=== PATIENT | female | born 1995 | race African-American/Black ===

== ENCOUNTER 2019-07-22 08:57 | Emergency (ER) | payer BC, MEDICAID, SELFPAY ==
[2019-07-22 09:17] VITALS: BP 143/90; PULSE 74; RESP 16; TEMP 36.9; O2SAT 99
--- NOTE | 2019-07-22 09:36 | ED.GENADULT ---
HPI - General Adult General Chief complaint: Eye Problems Stated complaint: Left Eye pain Time Seen by Provider: 07/22/19 09:36 Source: patient and RN notes reviewed Mode of arrival: ambulatory Limitations: no limitations History of Present Illness HPI narrative: 24-year-old -[place] female presents with complains of redness and sensation of foreign body in left eye for 1 day. No treatment. She says her child scratched her on an accident in the left eye earlier this morning between 01:00 and 02:00 when she picked her up. Moderate redness and clear drainage. Symptoms worsening throughout the day. Exacerbating factors open eye and light. Relieving factors is closing eyes. Denies blurred vision, double vision, or pain of eye with movement. Denies fever or chills. Remains active. Linda denies being , LMP 2 weeks ago and on control. Some parts of this dictation were generated by voice recognition software and may contain typographical and/or grammatical inaccuracies. Severity scale (1-10): 9 Related Data Home Medications Medication Instructions Recorded Confirmed norethindrone-e.estradiol-iron [Lo 1 tablet PO DAILY 07/22/19 07/22/19 Loestrin Fe] Allergies Allergy/AdvReac Type Severity Reaction Status Date / Time No Known Allergies Allergy Unknown Uncoded 07/22/19 09:42 Review of Systems Review of Systems: Narrative: CONSTITUTIONAL: Denies fever, chills, sweats. EYES: Denies visual changes. Complains of LT eye redness and foreign body sensation, clear discharge. ENT: Denies rhinorrhea, congestion, sore throat, otalgia. CARDIOVASCULAR: Denies chest pain, palpitations, edema. RESPIRATORY: Denies dyspnea, wheezing, cough. GASTROINTESTINAL: Denies abdominal pain, nausea, vomiting, diarrhea. GENITOURINARY: Denies dysuria, hematuria, abnormal discharge. SKIN: Denies rash or itching. MUSCULOSKELETAL: Denies acute back pain, joint pain, or myalgia. NEUROLOGIC: Denies numbness or focal weakness. PSYCHIATRIC: Denies anxiety or depression. All systems reviewed & are unremarkable except as noted in HPI and below. [facility] Past Medical History Medical History No significant past medical history Surgical History Surgical History No significant past surgical history Family History Family History Mother Hypertension Mother Kidney failure Social History Social History Smoking status: Never smoker Second hand tobacco smoke exposure: No Alcohol intake: current Alcohol use details: occasional Substance use: former Living arrangements: with family Occupation/Education: occupation Gender identity (if verbalized by the patient): Female Spiritual care concerns: No Comments At time of signature, I have reviewed and agree with nursing past medical, surgical, social, and family history. Please see nursing chart for further information. There is no relevant family history pertinent to the presenting complaint. Exam Narrative: Exam Narrative: GENERAL: This is a well-nourished, well-developed patient, in no apparent distress. HEAD: normocephalic, atraumatic. EYES: PERRL. Sclera clear/white to RT eye only. LT eye sclera john and clear with clear watery drainage, no swelling, no tenderness on palpation or erythema. Vision is grossly intact. LT eye 20/70, RT 20/20. No foreign body. Noted a Corneal Abrasion at 3/4 o'clock area with topical anesthetic using Tetracaine and Fluorecein stain exam of the LT eye. No foreign body, ulcer, or dendritic lesions were noted on eversion of upper eyelid. No tenderness on palpation or erythema. No concern for Kylah-orbital cellulitis or orbital cellulitis. EARS: External ears normal, auditory canals clear and without drainage, TMs
[2019-07-22 09:57] VITALS: BP 140/89
== END 2019-07-22 09:57 | disposition home or self-care (01) ==
PROVIDERS: Emergency Provider Nurse Practitioner Family
DX: S05.02XA Injury of conjunctiva and corneal abrasion without foreign body, left eye, initial encounter (principal); W50.4XXA Accidental scratch by another person, initial encounter
CPT/HCPCS: 99213; A9270; G0463

== ENCOUNTER 2019-12-05 08:13 | Emergency (ER) | payer BC, MEDICAID, SELFPAY ==
--- NOTE | 2019-12-05 08:21 | PC.NURSE ---
Patient states I dont know if I want to be seen or even need anything. I have a runny nose but slept under a fan so I dont really need a COVID test. My job told me I can decide if I want to get COVID tested or not. Give me a min to decide if I want to stay here.
[2019-12-05 08:23] VITALS: BP 139/108; PULSE 84; RESP 18; TEMP 36.7; O2SAT 100
--- NOTE | 2019-12-05 08:26 | PC.NURSE ---
Patient states I dont want to stay, I have other things to do. I wont be billed for this right?
== END 2019-12-05 08:26 | disposition left against medical advice (07) ==
LOC: ANHED 08:43
DX: Z53.21 Procedure and treatment not carried out due to patient leaving prior to being seen by health care provider (principal)
CPT/HCPCS: 99199

== ENCOUNTER → 2020-08-27 03:37 | Outpatient (CLI) | payer BC, OTHER, SELFPAY ==
[2020-08-27 20:31] LABS: SARS-CoV-2 RNA PCR Negative
== END ==
PROVIDERS: Visit Provider Obstetrics & Gynecology
DX: Z01.812 Encounter for preprocedural laboratory examination (principal); Z20.822 Contact with and (suspected) exposure to COVID-19
CPT/HCPCS: C9803; U0003; U0005

== ENCOUNTER 2020-08-27 07:48 | Outpatient (CLI) | payer BC, OTHER, SELFPAY ==
[2020-08-27 08:40] LABS: Hematocrit 38.2 % (37.0-47.0); Hemoglobin 12.2 g/dL (12.0-15.0)
== END 2020-08-27 07:49 | disposition home or self-care (01) ==
LOC: ANHSURGERY 07:53
PROVIDERS: PCP Physician Assistant; Visit Provider Obstetrics & Gynecology
DX: Z01.812 Encounter for preprocedural laboratory examination (principal); N92.6 Irregular menstruation, unspecified
CPT/HCPCS: 36415; 85014; 85018

== ENCOUNTER 2020-08-30 01:56 | Day surgery (SDC) | payer BC, OTHER, SELFPAY ==
[2020-08-21 11:40] VITALS: BMI 34.0
--- NOTE | 2020-08-28 12:20 | PM.IMHP ---
H&P: HPI History of Present Illness Date/Time: 08/28/20 12:20 25-year-old 1 para 1 is admitted for hysteroscopy and dilatation and curettage. She has had irregular bleeding that has been refractory to medical therapy. Risks and benefits reviewed in great detail. She received the ACOG handout entitled hysteroscopy and dilatation and curettage respectively. She had all questions answered. She asked to proceed Chief Complaint: bleeding refractory to medical therapy Review of Systems Review of Systems: All systems reviewed & are unremarkable except as noted in HPI and below PMFSH Past Medical History Medical History No significant past medical history Surgical History Surgical History No significant past surgical history Family History Family History Mother Hypertension Mother Kidney failure Social History Social History Smoking status: Never smoker Second hand tobacco smoke exposure: No Alcohol intake: never Substance use: never Substance use type: does not use Gender identity (if verbalized by the patient): Female Spiritual care concerns: No Meds Home Medications and Allergies Home Medications Medication Instructions Recorded Confirmed Type norethindrone-e.estradiol-iron [Lo 1 tablet PO DAILY 07/22/19 08/21/20 History Loestrin Fe] ergocalciferol (vitamin D2) 50,000 unit PO WEEKLY 08/21/20 08/21/20 History [Vitamin D2] Allergies Allergy/AdvReac Type Severity Reaction Status Date / Time No Known Allergies Allergy Unknown Uncoded 07/22/19 09:42 Exam Const: General: no acute distress Eyes: General: appearance normal, both eyes and all related structures Neck: Neck: supple and no JVD Thyroid: thyroid normal Resp: Effort & Inspection: normal respiratory effort Auscultation: clear to auscultation bilaterally Cardio: Rate: regular rate Rhythm: regular rhythm GI: Inspection: non-distended GI Palp: Yes Soft to palpation, No Tenderness to palpation present (GI) and No Guarding due to palpation present (GI) Auscultation: normal bowel sounds : General: Yes bladder normal to palpation External Female Exam: normal external appearance Speculum Exam - Vagina: normal vaginal discharge and No vaginal bleeding Speculum Exam - Cervix: nontender Bimanual exam- vagina & uterus: bladder normal to palpation and No Cervical tenderness present OB/external & speculum: No vaginal bleeding Skin: General skin exam: no rashes or lesions noted Extrem: General: normal to inspection and no edema Psych: Mental Status: mental status grossly normal Affect: normal affect Assessment and Plan Additional Plan impression: Bleeding refractory to medical therapy Plan: Hysteroscopy/dilatation and curettage
--- NOTE | 2020-08-29 10:56 | WPDANESEPPF ---
Anes - Initial Pre Proc Eval Procedure: Operation Date: 08/30/20 14:30 Proposed Procedures p Hysteroscopy Dilation and Curettage - Immanuel Johnson MD Date/Time: 08/29/20 10:56 Surgeon: Immanuel Johnson MD Pre Op Diagnosis: irreg bleeding Patient Data Age: 25 Gender: F Height: 1.57 m Weight: 84.3 kg Allergies Allergy/AdvReac Type Severity Reaction Status Date / Time No Known Allergies Allergy Verified 08/30/20 12:54 Home Medications Medication Instructions Recorded Confirmed Type norethindrone-e.estradiol-iron [Lo 1 tablet PO DAILY 07/22/19 08/30/20 History Loestrin Fe] ergocalciferol (vitamin D2) 50,000 unit PO WEEKLY 08/21/20 08/30/20 History [Vitamin D2] hydrocodone-acetaminophen 1 tablet PO Q4H PRN #20 tablet 08/30/20 Rx Patient hx anesthesia problems: none Family hx anesthesia problems: none PMFSH Past Medical History Medical History (Updated 08/30/20 @ 06:06 by Immanuel Johnson MD) No significant past medical history Obesity Surgical History Surgical History No significant past surgical history Family History Family History Mother Hypertension Mother Kidney failure Social History Social History Smoking status: Never smoker Second hand tobacco smoke exposure: No Alcohol intake: never Substance use: never Substance use type: does not use Living arrangements: with family Gender identity (if verbalized by the patient): Female Spiritual care concerns: No Anes - Eval Final PreProcedure Day of Procedure 08/29/20 10:56 Patient weight: obese Heart: regular rate and rhythm Lungs: clear to auscultation and normal air movement Airway: Mallampati scale class II Neurological: alert and oriented Last oral intake: >/= 8 hours ASA classification: II Emergent: no Anesthetic plan: proceed Anesthesia type and monitoring: general GIVS and LMA Informed Consent: The patient's anesthetic plan and its attendant risks and benefits were discussed with the patient/family/POA. Questions were solicited and answers provided to the satisfaction of the patient/family/POA.
--- NOTE | 2020-08-30 06:05 | WPDHPUPDATE1 ---
History and Physical Update Update Date/Time: 08/30/20 06:05 History and Physical has been reviewed, including an updated exam of the patient. There are NO changes in the patient's condition. Risks, benefits, and alternatives have been discussed and questions answered. Patient agrees to proceed with procedure.
[2020-08-30] MEDS: ACETAMINOPHEN 500 MG TABLET 1000 MG PO (12:56)
[2020-08-30 13:04] VITALS: BP 128/90; PULSE 87; RESP 16; TEMP 37.1; O2SAT 100
[2020-08-30] MEDS: LACTATED RINGERS 1,000 ML 30 ML IV CONT (13:28)
--- NOTE | 2020-08-30 13:48 | P.OP_ITS ---
Procedure Note - Detailed Date of procedure: 08/30/20 Pre-op diagnosis: irreg bleeding Surgeon: Immanuel Johnson MD Postop diagnosis bleeding refractory to medical therapy Procedure: Hysteroscopy/dilatation curettage Anesthesia: IV sedation local Findings: Thick irregular tissue in the uterus. Complications: EBL: 5cc Description of procedure: The patient was prepped and draped in the normal sterile fashion placed in the dorsal lithotomy position. Under excellent IV sedation weighted speculum placed in posterior fornix of vagina. Anterior lip of the cervix was grasped with a single-tooth tenaculum and 2.5cc of 1% xylocaine anesthesia placed at 2, 4, 8, 10:00 a.m. of the cervix. The uterus s ounded 8cm. Serial dilatation with fragmented dilators performed followed by passage of the 5mm visualizing hysteroscope. Normal saline was used as visualizing medium. Thick irregular tissue was seen with some mucus each fallopian tube os could be seen appeared within normal limits. Uterus was scraped over the entire 360? until a good grating sound was heard. When no further tissue could be removed, the instruments removed. The patient was awakened. She went to recovery in satisfactory condition. All sponge, needle, instrument counts were correct. There were no immediate complications
[2020-08-30 13:52] VITALS: BP 123/84; PULSE 74; RESP 18; O2SAT 100
[2020-08-30] MEDS: oxyCODONE HCL (*CRX) 5 MG TAB IR PO (14:18)
[2020-08-30 14:22] VITALS: BP 134/88; PULSE 67; RESP 18
[2020-08-30] MEDS: LIDOCAINE HCL 1% LOCAL INJ 10 ML VIAL 50 ML INFILTRATE (14:31)
[2020-08-30 14:49] VITALS: BP 138/88; PULSE 68; RESP 20
== END 2020-08-30 15:20 | disposition home or self-care (01) ==
PROVIDERS: PCP Physician Assistant; Visit Provider Obstetrics & Gynecology
PROC: 0U5B8ZZ Destruction of Endometrium, Via Natural or Artificial Opening Endoscopic (ICD-10-PCS; CPT 58563; principal; 2020-08-30 14:30)
DX: N92.6 Irregular menstruation, unspecified (principal); E66.9 Obesity, unspecified; Z68.33 Body mass index [BMI] 33.0-33.9, adult
CPT/HCPCS: 58558; 36415; 85014; 85018; 88305; A9270; C9803; J2250; J2704; J3010; J7030; J7120; U0003; U0005

== ENCOUNTER 2020-12-06 08:03 | Emergency (ER) | payer BC, OTHER, SELFPAY ==
[2020-12-06 08:13] VITALS: BP 124/80; PULSE 71; RESP 16; TEMP 36.3; O2SAT 100
--- NOTE | 2020-12-06 08:15 | ED.URI ---
HPI - URI/Sore Throat General Chief Complaint: Upper Respiratory Infection Stated Complaint: Sore Throat Time Seen by Provider: 12/06/20 08:15 Source: patient, RN notes reviewed and old records reviewed Mode of arrival: ambulatory Limitations: no limitations History of Present Illness HPI Narrative: 25 year old female who presents to [facility] care with complaints of sore throat for the past 4 days days, states that boyfriend had strep throat approximately 2 weeks ago. Patient denies any fever chills or sweats, denies any cough, no known ear pain, shortness of breath or any nasal congestion or drainage. Patient states she took some Mucinex and ibuprofen for her symptoms. MD elicited complaint: sore throat Onset (ago): day(s) (4) Consistency: constant Severity: mild Pain scale (0-10): 3 Able to tolerate fluids by mouth: Yes Exacerbating factors: swallowing Relieving factors: nothing Context: sick contacts Treatments prior to arrival: ibuprofen and other (Mucinex) Related Data Allergies Allergy/AdvReac Type Severity Reaction Status Date / Time No Known Allergies Allergy Verified 12/06/20 08:20 Review of Systems Review of Systems: CONSTITUTIONAL: Denies fever, chills, or sweats. EYES: Denies visual changes, redness, or discharge. ENT: Denies rhinorrhea, congestion, positive sore throat, no otalgia, reports exposure to strep CARDIOVASCULAR: Denies chest pain, palpitations, or edema. RESPIRATORY: Denies cough or dyspnea. GASTROINTESTINAL: Denies abdominal pain, nausea, vomiting, or diarrhea. GENITOURINARY: Denies dysuria or hematuria. SKIN: Denies rash or itching. MUSCULOSKELETAL: Denies back pain, joint pain, or myalgia. NEUROLOGIC: Denies headache, numbness, or weakness. PSYCHIATRIC: Denies anxiety or depression. All systems reviewed & are unremarkable except as noted in HPI and below PMFSH Past Medical History Medical History (Updated 12/06/20 @ 08:35 by Hiral Cruz NP) No significant past medical history Obesity Surgical History Surgical History (Updated 12/06/20 @ 08:31 by Hiral Cruz NP) H/O dilation and curettage Previous section Family History Family History (Updated 12/06/20 @ 08:31 by Hiral Cruz NP) Mother Hypertension Mother Kidney failure Grandparent Carcinoma of colon Social History Social History Smoking status: Never smoker Second hand tobacco smoke exposure: No Alcohol intake: never Alcohol use details: occasional Substance use: never Substance use type: does not use Gender identity (if verbalized by the patient): Female Spiritual care concerns: No Comments At time of signature, agree with nursing past medical, surgical, social and family history. There is no relevant family history pertinent to the presenting complaint Exam Narrative: GENERAL: Well-appearing, well-nourished, and in no acute distress. HEAD: Normocephalic, atraumatic. EYES: PERRLA and EOMI. ENT: Nares clear, no rhinorrhea or epistaxis. Mucous membranes moist.TM's normal with good light reflex, throat red with tonsils red and swollen with white lesions, painful swallowing NECK: Supple. bilateral lymphadenopathy CHEST: Clear to auscultation. No respiratory distress.SAO2 100% on room air HEART: Regular rate and rhythm. No murmur heard. Normal peripheral pulses. ABDOMEN: Soft, nontender, nondistended, normal active bowel sounds. EXTREMITIES: Normal range of motion. No edema. SKIN: Warm, dry, no rash. NEURO: No focal deficits. Alert and oriented x3. Course Vital Signs Vital signs: Vital Signs Temperature 36.3 C L 12/06/20 08:13 Pulse Rate 71 12/06/20 08:13 Respiratory Rate 16 12/06/20 08:13 Blood Pressure 124/80 12/06/20 08:13 Pulse Oximetry 100 12/06/20 08:13 Temperature 36.3 C L 12/06/20 08:13 Pulse Rate 71 12/06/20 08:13 Respiratory Rate 16 12/06/20 08:13 Blood Pressure 124/80 07
== END 2020-12-06 08:41 | disposition home or self-care (01) ==
PROVIDERS: Emergency Provider Registered Nurse; PCP Physician Assistant
DX: J02.0 Streptococcal pharyngitis (principal)
CPT/HCPCS: 87880; 99213; G0463

== ENCOUNTER 2020-12-25 09:37 | Emergency (ER) | payer BC, OTHER, SELFPAY ==
[2020-12-25 09:47] VITALS: BP 129/76; PULSE 87; RESP 16; TEMP 37.4; O2SAT 98
--- NOTE | 2020-12-25 09:58 | ED.URI ---
HPI - URI/Sore Throat General Chief Complaint: Upper Respiratory Infection Stated Complaint: cough/congestion Source: patient and RN notes reviewed Limitations: no limitations History of Present Illness HPI Narrative: The patient, a non-smoker/occasional drinker, presents with URI type symptoms. Patient states she attended a wedding in the recent past, and family members have lost taste or smell. She now has 1/2-week history of nasal congestion, mild cough also associated with loss of taste. No fever, sore throat, CP, earache, wheezing/sneezing, S OB. [id number] test for Covid is strongly/early positive for Covid. Advised patient to go to on isolation, and to inform family. Related Data Allergies Allergy/AdvReac Type Severity Reaction Status Date / Time No Known Allergies Allergy Verified 12/25/20 10:04 Review of Systems Review of Systems: General/Constitutional: No weight loss,fever Eyes: N0: Redness,discharge Ears/Nose/Throat: No: Epistaxis,ear discharge Respiratory: Denies: Hemoptysis Gastrointestinal: No Vomiting, Bleeding-rectal Skin: No Lumps, eruption Neurologic: No Focal Weakness,Sz Hematologic: Denies: Petechiae/Purpura Psychiatric: No: Suicida ideationl All Other Systems: Reviewed and Negative PMFSH Past Medical History Medical History (Updated 12/25/20 @ 10:15 by Markell Joiner MD) No significant past medical history Obesity Surgical History Surgical History (Updated 12/06/20 @ 08:31 by Hiral Cruz NP) H/O dilation and curettage Previous section Family History Family History (Updated 12/06/20 @ 08:31 by Hiral Cruz NP) Mother Hypertension Mother Kidney failure Grandparent Carcinoma of colon Social History Social History Smoking status: Never smoker Second hand tobacco smoke exposure: No Alcohol intake: never Alcohol use details: occasional Substance use: never Substance use type: does not use Gender identity (if verbalized by the patient): Female Spiritual care concerns: No Comments At time of signature, agree with nursing past medical, surgical, social and family history. There is no relevant family history pertinent to the presenting complaint Exam Narrative: General Appearance: Well appearing, Well nourished EYE: PERRLA, Conjunctiva clear Nose: Rhinorrhea, Mucousal erythema Mouth/Throat: MM moist, Neck: Supple, No adenopathy Respiratory: No respiratory distress, airway patent Cardiovascular: RRR, Musculoskeletal: Non tender, Normal strength Skin: Warm, Dry Neurological: A&O x3, CN II-XII intact Psychiatric: Normal mood, Normal affect The patient agrees, in light of health emergency- in my medical judgement, only a personal chat was preferable to fully undress & examine the patient exhibiting potential COVID symptoms, in order to limit risk of infection. Course Vital Signs Vital signs: Vital Signs Temperature 99.4 F 12/25/20 09:47 Pulse Rate 87 12/25/20 09:47 Respiratory Rate 16 12/25/20 09:47 Blood Pressure 129/76 12/25/20 09:47 Pulse Oximetry 98 12/25/20 09:47 Temperature 99.4 F 12/25/20 09:47 Pulse Rate 87 12/25/20 09:47 Respiratory Rate 16 12/25/20 09:47 Blood Pressure 129/76 12/25/20 09:47 Pulse Oximetry 98 12/25/20 09:47 MDM - URI/Sore Throat Lab Data Labs: Lab Results 12/25/20 Range/Units 10:00 POC SARS CoV-2 Ag Positive (Negative) Discharge Plan Discharge Clinical Impression: COVID-19 Patient Disposition: Home, Self-Care Condition: Stable Instructions: COVID-19 (Coronavirus Disease 2019) (ED) Additional Instructions: Isolate for 10d Get vitamins D, B, C, zinc and baby aspirin while at the pharmacy. Consider getting pulse oximeter and return to hospital for less than A rate of 93% Prescriptions: New codeine-guaifenesin 10-100 mg/5 mL liquid 7.5 ml P
== END 2020-12-25 10:32 | disposition home or self-care (01) ==
PROVIDERS: Emergency Provider Emergency Medicine; PCP Physician Assistant
DX: U07.1 COVID-19 (principal); E66.9 Obesity, unspecified; Z68.33 Body mass index [BMI] 33.0-33.9, adult
CPT/HCPCS: 87426; 99213; C9803; G0463

== ENCOUNTER 2021-02-06 08:34 | Outpatient (CLI) | payer BC, MEDICAID, SELFPAY | END 2021-02-06 08:35 | disposition home or self-care (01) | LOC: ANHSURGERY 08:40 | PROVIDERS: PCP Physician Assistant; Visit Provider Obstetrics & Gynecology | DX: Z01.818 Encounter for other preprocedural examination (principal); R10.2 Pelvic and perineal pain | CPT/HCPCS: 36415; 86850; 86900; 86901 ==

== ENCOUNTER 2021-02-07 02:22 | Day surgery (SDC) | payer BC, OTHER, SELFPAY ==
[2021-01-30 11:53] VITALS: BMI 32.4
--- NOTE | 2021-02-04 12:14 | PM.IMHP ---
H&P: HPI History of Present Illness Date/Time: 02/04/21 12:14 This is a 25-year-old 1 para 1 female admitted for laparoscopy secondary to pelvic pain and suspected left ovarian cyst. She has had pain and discomfort as well as dyspareunia. Ultrasound showed a complex left ovarian cyst and some free fluid. Risks and benefits reviewed including but not exclusive of , aspiration pneumonia, bleeding, transfusion, perforation injury to bowel, bladder, ureters, nerves, or other internal organs need for open laparotomy. She received the ACOG handout entitled laparoscopy. She had all questions answered. She asked to proceed. Chief Complaint: Pelvic pain with left ovarian cyst Review of Systems Review of Systems: All systems reviewed & are unremarkable except as noted in HPI and below PMFSH Past Medical History Medical History No significant past medical history Obesity Surgical History Surgical History H/O dilation and curettage Previous section Family History Family History Mother Hypertension Mother Kidney failure Grandparent Carcinoma of colon Social History Social History Smoking status: Never smoker Second hand tobacco smoke exposure: No Alcohol intake: current Drinks per week: 2 Alcohol use details: occasional Substance use: former Substance use type: marijuana Other substance usage details: OCCASIONAL MARIJUANA USE IN THE PAST Gender identity (if verbalized by the patient): Female Spiritual care concerns: No Meds Home Medications and Allergies Home Medications Medication Instructions Recorded Confirmed Type No Home Medications 01/30/21 01/30/21 History Allergies Allergy/AdvReac Type Severity Reaction Status Date / Time No Known Allergies Allergy Verified 01/30/21 11:52 Exam Const: General: no acute distress Eyes: General: appearance normal, both eyes and all related structures Neck: Neck: supple and no JVD Thyroid: thyroid normal Resp: Effort & Inspection: normal respiratory effort Auscultation: clear to auscultation bilaterally Cardio: Rate: regular rate Rhythm: regular rhythm GI: Inspection: non-distended GI Palp: Yes Soft to palpation, No Tenderness to palpation present (GI) and No Guarding due to palpation present (GI) Auscultation: normal bowel sounds : External Female Exam: normal external appearance Speculum Exam - Vagina: normal appearance of the vagina Speculum Exam - Cervix: normal appearance of the cervix Bimanual exam- vagina & uterus: uterine shape normal and cervical motion tenderness Bimanual Exam- Adnexa, other: tender Skin: General skin exam: no rashes or lesions noted Extrem: General: normal to inspection and no edema Psych: Mental Status: mental status grossly normal Affect: normal affect Assessment and Plan Additional Plan Impression: Pelvic pain with complex left ovarian cyst Plan: Laparoscopy with possible left ovarian cystectomy
[2021-02-07] VITALS (13 sets, daily range): BP systolic 117–148; BP diastolic 67–91; PULSE 56–100; RESP 11–16; TEMP 36.4–36.8; O2SAT 93–100
--- NOTE | 2021-02-07 07:17 | WPDHPUPDATE1 ---
History and Physical Update Update Date/Time: 02/07/21 07:17 History and Physical has been reviewed, including an updated exam of the patient. There are NO changes in the patient's condition. Risks, benefits, and alternatives have been discussed and questions answered. Patient agrees to proceed with procedure.
[2021-02-07] MEDS: ACETAMINOPHEN 500 MG TABLET 1000 MG PO (08:24)
[2021-02-07] MEDS: LACTATED RINGERS 1,000 ML 30 ML IV CONT ×2 (08:30→10:23)
[2021-02-07] MEDS: KETOROLAC 15 MG/ML VIAL (*BKC) IV PUSH (08:34)
--- NOTE | 2021-02-07 09:15 | P.PNAN_ITS ---
Anes - Initial Pre Proc Eval Procedure: Operation Date: 02/07/21 09:30 Proposed Procedures p Diagnostic Laparoscopy, Possible Left Ovarian Cystectomy - Immanuel Johnson MD Date/Time: 02/07/21 09:15 Surgeon: Immanuel Johnson MD Pre Op Diagnosis: pain possible left ovarian cyst Patient Data Age: 25 Gender: F Height: 1.6 m Weight: 82.1 kg Last Vital Signs Temp 36.8 C 02/07/21 08:16 Pulse 70 02/07/21 08:16 Resp 16 02/07/21 08:16 BP 117/67 02/07/21 08:16 Pulse Ox 100 02/07/21 08:16 Allergies Allergy/AdvReac Type Severity Reaction Status Date / Time No Known Allergies Allergy Verified 02/07/21 08:13 Home Medications Medication Instructions Recorded Confirmed Type hydrocodone-acetaminophen 1 tablet PO Q4H PRN #30 tablet 02/07/21 Rx Patient hx anesthesia problems: post op nausea/vomiting Family hx anesthesia problems: none Results Review: All pre-operative results and documents have been reviewed as part of the pre-operative evaluation. [facility] Past Medical History Medical History No significant past medical history Obesity Surgical History Surgical History H/O dilation and curettage Previous section Family History Family History Mother Hypertension Mother Kidney failure Grandparent Carcinoma of colon Social History Social History Smoking status: Never smoker Second hand tobacco smoke exposure: No Alcohol intake: current Drinks per week: 2 Alcohol use details: occasional Substance use: former Substance use type: marijuana Other substance usage details: OCCASIONAL MARIJUANA USE IN THE PAST Living arrangements: with family Gender identity (if verbalized by the patient): Female Spiritual care concerns: No Anes - Eval Final PreProcedure Day of Procedure 02/07/21 09:15 Patient weight: obese Heart: regular rate and rhythm Lungs: clear to auscultation Airway: Mallampati scale class III Neurological: alert and oriented Last oral intake: >/= 8 hours ASA classification: II Emergent: no Anesthetic plan: proceed Anesthesia type and monitoring: general ETT and standard monitoring Results Review: All pre-operative results and documents have been reviewed as part of the pre-operative evaluation. Informed Consent: The patient's anesthetic plan and its attendant risks and benefits were discussed with the patient/family/POA. Questions were solicited and answers provided to the satisfaction of the patient/family/POA.
[2021-02-07] MEDS: SCOPOLAMINE 1.5 MG PATCH TRANSDERM (09:21)
--- NOTE | 2021-02-07 10:17 | W.PM.PROC2 ---
Procedure Note - Detailed Date of Procedure 02/07/21 Pre-op Diagnosis pain possible left ovarian cyst Post-op Diagnosis same (With bilateral ovarian cysts) Procedure Performed Laparoscopic destruction of bilateral ovarian cysts Surgeon Immanuel Johnson MD Anesthesia general Indications This is a 25-year-old female with pelvic pain and known left ovarian cyst Findings Enlarged retroverted uterus was seen. Bilateral simple ovarian cysts were seen. Normal-appearing tubes. Normal-appearing appendix Description of Procedure The patient was prepped draped in normal sterile fashion placed in the dorsal lithotomy position. Under excellent general endotracheal anesthesia weighted speculum placed in posterior fornix vagina. The anterior lip of the cervix was grasped with a single-tooth tenaculum. Bladder drained of clear urine and the weighted speculum. Gloves were changed. An infraumbilical incision made the Veress needle passed in the abdomen. Abdomen filled with CO2 gas to 15 mercury. The 5mm trocar advanced direct visualization assuring injury. The patient placed in Trendelenburg and a suprapubic incision made. The 5mm trocar advanced under direct visualization assuring no injury. Approximately 30cc of serosanguineous fluid was seen in the cul-de-sac and this was suction and removed. Moderate-sized left and right ovarian cysts were seen and these were opened in linear fashion with monopolar cautery at 35 w per 2nd. Irrigation undertaken until clear. Photo documentation was undertaken and the lower site removed. The gas removed from the abdomen. The trocars removed the incisions closed with 4-0 Monocryl and glue. The patient was awakened. All sponge, needle, instrument counts were correct. There were immediate complications Estimated Blood Loss 5 Drains No Packing No Pathology none sent Complications No immediate complications Condition stable Disposition PACU
[2021-02-07] MEDS: fentaNYL CITRATE INJ (*CRX) 100 MCG/2 ML VIAL 25 MCG IV PUSH ×4 (10:29→11:00)
[2021-02-07] MEDS: ONDANSETRON INJ 4 MG/2 ML VIAL IV PUSH (11:38)
[2021-02-07] MEDS: diphenhydrAMINE HCl INJ 50 MG/ML VIAL 25 MG IV PUSH (12:45)
== END 2021-02-07 14:15 | disposition home or self-care (01) ==
PROVIDERS: PCP Physician Assistant; Visit Provider Obstetrics & Gynecology
PROC: (CPT 49320; principal; 2021-02-07 09:30)
DX: R10.2 Pelvic and perineal pain (principal); N83.292 Other ovarian cyst, left side; N83.291 Other ovarian cyst, right side; E66.9 Obesity, unspecified; Z68.32 Body mass index [BMI] 32.0-32.9, adult
CPT/HCPCS: 58662; 36415; 86850; 86900; 86901; A9270; J1200; J1885; J2250; J2270; J2405; J3010; J7030; J7120

== ENCOUNTER 2021-05-17 16:49 | Emergency (ER) | payer BC, OTHER, SELFPAY ==
--- NOTE | 2021-05-17 16:55 | ED.URI ---
HPI - URI/Sore Throat General Chief Complaint: Upper Respiratory Infection Stated Complaint: sore throat Time Seen by Provider: 05/17/21 16:56 Source: patient, RN notes reviewed and old records reviewed Mode of arrival: ambulatory Limitations: no limitations History of Present Illness HPI Narrative: 26-year-old female presents to the [facility] with complaints of a sore throat. Patient thinks that she has strep throat. No treatment prior to arrival. MD elicited complaint: sore throat Related Data Home Medications Medication Instructions Recorded Confirmed No Home Medications 05/17/21 05/17/21 Allergies Allergy/AdvReac Type Severity Reaction Status Date / Time No Known Allergies Allergy Verified 05/17/21 17:12 Review of Systems Review of Systems: All systems reviewed & are unremarkable except as noted in HPI and below Constitutional: Constitutional: Reports no additional constitutional complaints, Denies chills, Denies fatigue, Denies fever(s) (Subjective) and Reports headache(s) Eyes: Eyes: Reports no additional eye complaints ENT: Reports as per HPI, Reports headache(s) and Reports sore throat Cardiovascular: Cardiovascular: Reports no additional cardiovascular complaints, Denies chest pain and Denies dyspnea Respiratory: Respiratory: Reports no additional respiratory complaints, Denies cough and Denies dyspnea Gastrointestinal: Gastrointestinal: Reports no additional gastrointestinal complaints, Denies abdominal pain, Denies diarrhea, Denies nausea and Denies vomiting Musculoskeletal: Musculoskeletal: Reports no additional musculoskeletal complaints Integumentary/Breasts: Skin/Breast: Reports system reviewed and no additional complaints, except as docu Neurologic: Reports system reviewed and no additional complaints, except as documented and Reports as per HPI Psychiatric: Psychiatric: Reports no additional psychiatric complaints Allergic/Immunologic: Allergic/Immunologic: Reports no additional allergic/immunologic complaints [facility] Past Medical History Medical History No significant past medical history Obesity Surgical History Surgical History H/O dilation and curettage Previous section Family History Family History Mother Hypertension Mother Kidney failure Grandparent Carcinoma of colon Social History Social History Smoking status: Never smoker Second hand tobacco smoke exposure: No Alcohol intake: current Drinks per week: 2 Alcohol use details: occasional Substance use: former Substance use type: marijuana Other substance usage details: OCCASIONAL MARIJUANA USE IN THE PAST Gender identity (if verbalized by the patient): Female Spiritual care concerns: No Comments At the time of my signature, I reviewed and agree with the nursing past medical, surgical, social, and family history. There is no relevant family history pertinent to the patient complaint. Exam Const: General: healthy appearing, no acute distress and alert Nutritional Appearance: well nourished Orientation/consciousness: patient oriented x3 Limitations: no limitations HENMT: Head: normal to inspection Ears: external ears normal, TM's normal bilaterally and EAC's normal Face and sinus: normal facial exam Mouth: Yes Normal oral and palatal mucosa present Throat: posterior oropharynx normal, tonsils normal, uvula midline, postnasal drainage and no uvular edema Eyes: Conjunctivae: conjunctivae normal Pupils: Equal, round and reactive pupils present Neck: Neck: normal visual inspection, no lymphadenopathy and no meningeal signs Chest: Chest palpation & inspection: normal inspection of the chest Resp: Effort & Inspection: normal respiratory effort and no use
[2021-05-17 16:59] VITALS: BP 129/82; PULSE 82; RESP 16; TEMP 37.7; O2SAT 100
== END 2021-05-17 17:22 | disposition home or self-care (01) ==
PROVIDERS: Emergency Provider Nurse Practitioner; PCP Physician Assistant
DX: R09.82 Postnasal drip (principal); J02.9 Acute pharyngitis, unspecified; E66.9 Obesity, unspecified; Z68.32 Body mass index [BMI] 32.0-32.9, adult
CPT/HCPCS: 87081; 87880; 99213; G0463

== ENCOUNTER 2022-03-20 08:06 | Emergency (ER) | payer BC, OTHER, SELFPAY ==
--- NOTE | 2022-03-20 08:12 | ED.URI ---
HPI - URI/Sore Throat General Chief Complaint: Upper Respiratory Infection Stated Complaint: cough/sore throat Time Seen by Provider: 03/20/22 08:10 Source: patient Mode of arrival: ambulatory Limitations: no limitations History of Present Illness HPI Narrative: Ms. Peña is a 27-year-old female patient presenting to the clinic today with complaints of sore throat and a cough for a couple days. She reports she is mainly concerned about her sore throat is she feels it is very swollen and very painful. She rates her pain a 7/10 currently. She denies any fever, body aches, or chills. MD elicited complaint: sore throat and nasal congestion Related Data Home Medications Medication Instructions Recorded Confirmed etonogestrel 0.12 mg-ethinyl vag ring vaginal 03/20/22 estradiol 0.015 mg/24 hr vaginal ring (EluRyng) Allergies Allergy/AdvReac Type Severity Reaction Status Date / Time No Known Allergies Allergy Verified 03/20/22 08:21 Review of Systems Review of Systems: Pertinent positives per HPI. Patient denies any fever, chills, rash, headache, visual changes, dizziness, shortness of breath, chest pain, palpitations, nausea, vomiting, diarrhea, constipation, abdominal pain, or any urinary issues. [facility] Past Medical History Medical History No significant past medical history Obesity Surgical History Surgical History H/O dilation and curettage Previous section Family History Family History Mother Hypertension Mother Kidney failure Grandparent Carcinoma of colon Social History Social History Smoking status: Never smoker Second hand tobacco smoke exposure: No Alcohol intake: current Drinks per week: 2 Alcohol use details: occasional Substance use: former Substance use type: marijuana Other substance usage details: OCCASIONAL MARIJUANA USE IN THE PAST Gender identity (if verbalized by the patient): Female Spiritual care concerns: No Comments At the time of my signature, I reviewed and agree with the nursing past medical, surgical, social, and family history. There is no relevant family history pertinent to the patient complaint. Exam Narrative: General: Well-developed, well nourished, in no apparent distress Head: Normocephalic, atraumatic Eyes: Pupils equally round and reactive to light bilaterally, EOM intact, sclera and conjunctive clear, no discharge, lids normal Ears: TMs intact and clear, ear canals clear, no drainage, grossly hearing normal. Nose: Nares patent, no discharge, no inflammation, no sinus tenderness. Mouth: Oral pharynx without lesions or masses, good dentition, MMM. oropharynx red with bilateral tonsillar swelling Neck: Supple, trachea midline, enlargement of anterior cervical nodes, no thyroid masses or goiter palpable. Cardio: Regular rate and rhythm, s1 and s2 normal, no murmur appreciated. Resp: Clear to auscultation bilaterally, no rhonchi, rales, wheezing or rubs Course Course Emergency Course: Portions of this record may have been created with voice recognition software. Level of Care: Express Care Visit Vital Signs Vital signs: Vital signs reviewed MDM - URI/Sore Throat MDM Narrative Medical decision making narrative: At the time of visit patient is resting comfortably on the exam table. Strep screen was obtained was negative in the clinic today. Will send her prescription for some prednisone to help with the swelling and inflammation in the back or throat as well as some viscous lidocaine to help with the pain. Supportive measures were discussed with the patient she voiced understanding of discharge instructions and agrees to treatment plan. Differential Diagnosis Differentia
[2022-03-20 08:16] VITALS: BP 126/84; PULSE 85; RESP 16; TEMP 36.6; O2SAT 99
== END 2022-03-20 08:33 | disposition home or self-care (01) ==
PROVIDERS: Emergency Provider Nurse Practitioner Family
DX: J02.9 Acute pharyngitis, unspecified (principal)
CPT/HCPCS: 87081; 87880; 99213; G0463

== ENCOUNTER 2023-04-16 13:49 | Outpatient (CLI) | payer BC, SELFPAY ==
--- NOTE | ~2023-04-16 | XR_ITS ---
EXAMINATION: XR chest 2V 04/16/2023 14:10 INDICATION: Cough PROCEDURE: 2 view chest COMPARISON: No prior studies for comparison. FINDINGS: The lungs are clear. The cardiomediastinal silhouette is within normal limits. There are no pleural effusions. There is no pneumothorax suspected. IMPRESSION: 1: NO ACUTE CARDIOPULMONARY DISEASE. Reviewed, dictated and finalized at location B. [facility]
== END 2023-04-16 13:50 ==
PROVIDERS: PCP Emergency Medicine; Visit Provider Emergency Medicine
DX: R05.9 Cough, unspecified (principal)
CPT/HCPCS: 71046

== ENCOUNTER 2023-08-06 08:34 | Emergency (ER) | payer BC, SELFPAY ==
--- NOTE | 2023-08-06 08:43 | ED.URI ---
HPI - URI/Sore Throat General Chief Complaint: Nausea/Vomiting/Diarrhea Stated Complaint: Diarrhea/Headache Time Seen by Provider: 08/06/23 08:53 Source: patient and RN notes reviewed Mode of arrival: ambulatory Limitations: no limitations History of Present Illness HPI Narrative: 28-year-old female presents with concern for diarrhea that started yesterday, headache. Reports she may have been exposed to illness at a hockey game on Wednesday. She has not taken any medications for her symptoms. She denies fever, body aches, chills, sweats. She reports nausea with dry heaving. Denies abdominal pain. Denies upper respiratory infection symptoms MD elicited complaint: other (headache) Related Data Home Medications Medication Instructions Recorded Confirmed etonogestrel 0.12 mg-ethinyl vag ring vaginal 08/06/23 estradiol 0.015 mg/24 hr vaginal ring (Haloette) Allergies Allergy/AdvReac Type Severity Reaction Status Date / Time No Known Allergies Allergy Verified 08/06/23 08:37 Review of Systems Review of Systems: CONSTITUTIONAL: Denies malaise, chills, sweats, or fever. ENT: Denies rhinorrhea, congestion, sinus pain, otalgia or sore throat. CARDIOVASCULAR: Denies chest pain, palpitations, or edema. RESPIRATORY: Denies cough or dyspnea. GASTROINTESTINAL: Denies abdominal pain, vomiting, bloody, or mucous stools. Reports diarrhea, nausea, dry heaving GENITOURINARY: Denies dysuria or hematuria. MUSCULOSKELETAL: Denies myalgia. NEUROLOGIC: Reports headache. All systems reviewed & are unremarkable except as noted in HPI and below PMFSH Past Medical History Medical History Broken arm Right No significant past medical history Obesity Surgical History Surgical History H/O dilation and curettage Previous section Family History Family History Mother Hypertension Mother Kidney failure Grandparent Carcinoma of colon Social History Social History Smoking status: Never smoker Second hand tobacco smoke exposure: No Alcohol intake: current Drinks per week: 2 Alcohol use details: occasional Substance use: former Substance use type: marijuana Other substance usage details: OCCASIONAL MARIJUANA USE IN THE PAST Lack of Transportation: No Lack of Food: Never True Current Housing: I Have Housing Concerned About Future Housing: No Difficulty Paying Gas/Electric Bills: No Difficulty Paying for Meds: No Currently Unemployed: No Education: Bachelor's Degree Difficulty w/ Childcare or Family Care: No Living arrangements: with family Occupation/Education: occupation Gender identity (if verbalized by the patient): Female Spiritual care concerns: No Comments At time of signature, agree with nursing past medical, surgical, social and family history. There is no relevant family history pertinent to the presenting complaint Exam Narrative: GENERAL: Well-appearing, well-nourished, and in no acute distress. HEAD: Normocephalic, atraumatic. EYES: PERRLA, sclera clear, and EOMI. No nystagmus. ENT: Nares clear. Mucous membranes moist. NECK: Supple. CHEST: No respiratory distress. Speaks in full sentences. HEART: Regular rate and rhythm. No murmur heard. Normal peripheral pulses. ABDOMEN: Soft, nontender, nondistended, normal active bowel sounds, no palpable masses. EXTREMITIES: Normal range of motion. SKIN: Warm, dry, no visible rash. NEURO: Alert and oriented x3. PSYCH: Normal mood and affect Course Course Emergency Course: Patient is aware of diagnosis, understands and agrees to treatment plan. Anticipatory guidance given. Patient agrees to follow-up as directed and is aware of reasons to seek care at the emergency department. P
[2023-08-06 08:46] VITALS: BP 137/81; PULSE 78; RESP 16; TEMP 36.4; O2SAT 100
== END 2023-08-06 09:05 | disposition home or self-care (01) ==
PROVIDERS: Emergency Provider Nurse Practitioner; PCP Emergency Medicine
DX: R19.7 Diarrhea, unspecified (principal); E66.9 Obesity, unspecified; Z68.41 Body mass index [BMI] 40.0-44.9, adult
CPT/HCPCS: 99211; G0463

== ENCOUNTER 2023-09-27 08:29 | Emergency (ER) | payer BC, SELFPAY ==
[2023-09-27 08:42] VITALS: BP 143/84; PULSE 74; RESP 16; TEMP 37.7; O2SAT 100
--- NOTE | 2023-09-27 09:13 | ED.URI ---
HPI - URI/Sore Throat General Chief Complaint: Upper Respiratory Infection Stated Complaint: sore, red throat Time Seen by Provider: 09/27/23 09:07 Source: patient and RN notes reviewed Mode of arrival: ambulatory Limitations: no limitations History of Present Illness HPI Narrative: Patient presents today complaining of a 2 day history of sore throat. Denies any additional symptoms to include fever, congestion, rhinorrhea, cough, shortness of breath, difficulty swallowing. Currently rates her pain 9/10 and has been taking Aleve without relief. No recent antibiotic use. Related Data Home Medications Medication Instructions Recorded Confirmed etonogestrel 0.12 mg-ethinyl 1 vag ring vaginal DIRECTED 08/06/23 09/27/23 estradiol 0.015 mg/24 hr vaginal ring (Haloette) Allergies Allergy/AdvReac Type Severity Reaction Status Date / Time No Known Allergies Allergy Verified 09/27/23 08:32 Review of Systems Review of Systems: CONSTITUTIONAL: Denies body aches, fever, chills, or sweats. EYES: Denies visual changes, redness, or discharge. ENT: Denies rhinorrhea, congestion, or otalgia.+ sore throat CARDIOVASCULAR: Denies chest pain, palpitations, or edema. RESPIRATORY: Denies cough or dyspnea. GASTROINTESTINAL: Denies abdominal pain, nausea, vomiting, or diarrhea. GENITOURINARY: Denies dysuria or hematuria. SKIN: Denies rash, itching, or wounds. MUSCULOSKELETAL: Denies back pain, joint pain, or myalgia. NEUROLOGIC: Denies headache, numbness, tingling, or weakness. PSYCH: Denies depression or anxiety. [facility] Past Medical History Medical History Broken arm Right No significant past medical history Obesity Surgical History Surgical History H/O dilation and curettage Previous section Family History Family History Mother Hypertension Mother Kidney failure Grandparent Carcinoma of colon Social History Social History Smoking status: Never smoker Second hand tobacco smoke exposure: No Alcohol intake: current Drinks per week: 2 Alcohol use details: occasional Substance use: former Substance use type: marijuana Other substance usage details: OCCASIONAL MARIJUANA USE IN THE PAST Lack of Transportation: No Lack of Food: Never True Current Housing: I Have Housing Concerned About Future Housing: No Difficulty Paying Gas/Electric Bills: No Difficulty Paying for Meds: No Currently Unemployed: No Education: Bachelor's Degree Difficulty w/ Childcare or Family Care: No Living arrangements: with family Occupation/Education: occupation Gender identity (if verbalized by the patient): Female Spiritual care concerns: No Comments At time of signature, I have reviewed and agree with nursing past medical, surgical, social and family history unless otherwise noted. Please see nursing chart for further information. There is no relevant family history pertinent to the presenting complaint Exam Narrative: GENERAL: Well-appearing, well-nourished, and in no acute distress. HEAD: Normocephalic, atraumatic. EYES: EOMI. No redness or drainage. Conjunctivae normal. ENT: Mucous membranes pink and moist. Nares clear. No rhinorrhea. TMs normal bilaterally. Throat erythematous. Tonsils 3+ without exudate. Uvula midline. NECK: Normal AROM. Supple. No lymphadenopathy. CHEST: No respiratory distress. Clear to auscultation. HEART: Regular rate and rhythm. No murmur appreciated. EXTREMITIES: Normal range of motion. No edema. SKIN: Warm, dry, no rash. Capillary refill normal. Normal skin turgor. NEURO: No focal deficits. Alert and oriented x3. Gait steady. PSYCH: Normal affect. No signs of depression or anxiety. Course
== END 2023-09-27 09:20 | disposition home or self-care (01) ==
PROVIDERS: Emergency Provider Nurse Practitioner; PCP Emergency Medicine
DX: J02.0 Streptococcal pharyngitis (principal); E66.9 Obesity, unspecified; Z68.41 Body mass index [BMI] 40.0-44.9, adult
CPT/HCPCS: 87880; 99213; G0463

== ENCOUNTER 2023-10-30 14:41 | Emergency (ER) | payer BC, SELFPAY ==
--- NOTE | 2023-10-30 14:47 | ED.URI ---
HPI - URI/Sore Throat General Chief Complaint: Upper Respiratory Infection Stated Complaint: Sore Throat Time Seen by Provider: 10/30/23 14:47 Source: patient Mode of arrival: ambulatory Limitations: no limitations History of Present Illness HPI Narrative: 28-year-old female here for strep swab. States that she brought her daughter for sore throat so she thought she should be checked also. Has slight sore throat, no other symptoms. All systems reviewed and negative except as noted above. Related Data Home Medications Medication Instructions Recorded Confirmed etonogestrel 0.12 mg-ethinyl 1 vag ring vaginal DIRECTED 08/06/23 10/30/23 estradiol 0.015 mg/24 hr vaginal ring (Haloette) Allergies Allergy/AdvReac Type Severity Reaction Status Date / Time No Known Allergies Allergy Verified 10/30/23 14:44 Review of Systems Review of Systems: CONSTITUTIONAL: Denies fever, chills, or sweats. EYES: Denies visual changes, redness, or discharge. ENT: Denies rhinorrhea, congestion . Reports sore throat. Denies otalgia. CARDIOVASCULAR: Denies chest pain, palpitations, or edema. RESPIRATORY: Denies cough or dyspnea. GASTROINTESTINAL: Denies abdominal pain, nausea, vomiting, or diarrhea. GENITOURINARY: Denies dysuria or hematuria. SKIN: Denies rash or itching. MUSCULOSKELETAL: Denies back pain, joint pain, or myalgia. NEUROLOGIC: Denies headache, numbness, or weakness. PSYCHIATRIC: Denies anxiety or depression. All other systems reviewed are negative, except as documented in HPI. [facility] Past Medical History Medical History Broken arm Right No significant past medical history Obesity Surgical History Surgical History H/O dilation and curettage Previous section Family History Family History Mother Hypertension Mother Kidney failure Grandparent Carcinoma of colon Social History Social History Smoking status: Never smoker Second hand tobacco smoke exposure: No Alcohol intake: current Drinks per week: 2 Alcohol use details: occasional Substance use: former Substance use type: marijuana Other substance usage details: OCCASIONAL MARIJUANA USE IN THE PAST Lack of Transportation: No Lack of Food: Never True Current Housing: I Have Housing Concerned About Future Housing: No Difficulty Paying Gas/Electric Bills: No Difficulty Paying for Meds: No Currently Unemployed: No Education: Bachelor's Degree Difficulty w/ Childcare or Family Care: No Living arrangements: with family Occupation/Education: occupation Gender identity (if verbalized by the patient): Female Spiritual care concerns: No Comments At time of signature, agree with nursing past medical, surgical, social and family history. There is no relevant family history pertinent to the presenting complaint. Exam Narrative: GENERAL: This is a well-nourished, well-developed patient, in no apparent distress. HEAD: normocephalic, atraumatic. EYES: PERRL. Sclera clear/white. Vision is grossly intact. EARS: External ears normal, auditory canals clear and without drainage, TMs normal without perforation. Hearing grossly intact. NOSE: External nose normal with no obvious nasal discharge, nares without redness, no rhinorrhea. THROAT: Mucous membranes moist, posterior pharynx clear. NECK: Neck supple, non-tender without lymphadenopathy, masses or thyromegaly. CARDIOVASCULAR: Regular rate and rhythm without murmurs, gallops, or rubs. RESPIRATORY: Clear to auscultation. Breath sounds equal bilaterally. No wheezes, rales, or rhonchi. SKIN: warm, Dry, intact with no suspicious lesions or rash, good texture and turgor. NEURO: awake, alert, and oriented to person,
[2023-10-30 15:10] VITALS: BP 130/85; PULSE 89; RESP 18; TEMP 37.8; O2SAT 100
== END 2023-10-30 15:35 | disposition home or self-care (01) ==
PROVIDERS: Emergency Provider Nurse Practitioner Family; PCP Emergency Medicine
DX: J02.9 Acute pharyngitis, unspecified (principal); E66.9 Obesity, unspecified; Z68.41 Body mass index [BMI] 40.0-44.9, adult
CPT/HCPCS: 87081; 87880; 99213; G0463

== ENCOUNTER 2023-11-23 14:22 | Outpatient (CLI) | payer BC, SELFPAY ==
[2023-11-23 18:08] LABS: Basophils Absolute Auto 0.1 K/mm3 (0.0-0.1); Basophils Percent Auto 0.7 % (0.2-1.2); Eosinophils Absolute Auto 0.2 K/mm3 (0-0.3); Eosinophils Percent Auto 2.2 % (0-4.4); Hematocrit 38.2 % (37.0-47.0); Hemoglobin 11.6 g/dL (12.0-15.0); Immature Granulocyte Absolute 0.02 K/mm3 (0.00-0.031); Immature Granulocyte Percent A 0.2 % (0-0.5); Lymphocytes Absolute Auto 2.55 K/mm3 (0.9-3.2); Lymphocytes Percent Auto 31.7 % (18.3-44.2); Mean Corpuscular HGB Conc 30.4 g/dl (32-36); Mean Corpuscular Hemoglobin 23.4 pg (26-34); Mean Corpuscular Volume 77.2 fl (80-100); Mean Platelet Volume 10.5 fl (7.4-10.4); Monocytes Absolute Auto 0.6 K/mm3 (0.1-0.6); Monocytes Percent Auto 6.8 % (2.6-8.5); Neutrophils Absolute Auto 4.7 K/mm3 (1.3-6.7); Neutrophils Percent Auto 58.4 % (45.5-73.1); Platelet Count Result 378 k/mm3 (150-375); Red Blood Count 4.95 M/mm3 (4.2-5.4); Red Cell Distribution Width 16.8 % (11.5-14.5); White Blood Count 8.1 K/mm3 (4.5-10.0)
[2023-11-23 18:26] LABS: Alanine Aminotransferase 15 U/L (6-35); Albumin Level 3.9 g/dL (3.5-5.1); Alkaline Phosphatase 70 U/L (38-126); Amylase 87 U/L (30-110); Anion Gap 7 mmol/L (4-12); Aspartate Amino Transferase 43 U/L (14-36); Bilirubin,Total 0.4 mg/dL (0.2-1.3); Blood Urea Nitrogen 9 mg/dL (7-17); Calcium 9.1 mg/dL (8.4-10.2); Carbon Dioxide 27 mmol/L (22-30); Chloride 103 mmol/L (98-107); Estimated Glomerular Filt Rate > 60; Glucose 109 mg/dL (65-110); Lipase 60 U/L (23-300); Potassium 3.9 mmol/L (3.4-5.0); Sodium 137 mmol/L (137-145)
[2023-11-23 20:57] LABS: Iron 43 ug/dL (37-170)
[2023-11-23 21:09] LABS: Percent Iron Saturation 10 % (20-50)
[2023-11-23 21:17] LABS: Vitamin D 25 Hydroxy 19.2 ng/mL
== END 2023-11-23 14:23 | disposition home or self-care (01) ==
LOC: ANHGOSHLAB 14:24
PROVIDERS: PCP Emergency Medicine; Visit Provider Nurse Practitioner Family
DX: R68.89 Other general symptoms and signs (principal); E55.9 Vitamin D deficiency, unspecified; R53.83 Other fatigue
CPT/HCPCS: 36415; 80053; 82150; 82306; 82728; 83540; 83550; 83690; 84443; 85025

== ENCOUNTER 2023-12-31 07:57 | Outpatient (CLI) | payer BC, SELFPAY ==
--- NOTE | ~2023-12-31 | US_ITS ---
EXAMINATION: US thyroid DATE: 12/31/2023 08:19 INDICATION: Nontoxic goiter. TECHNIQUE: Multiple ultrasound images of the thyroid were obtained. COMPARISON: None. FINDINGS: The right thyroid lobe measures 4.5 x 1.6 x 2.1 cm. The left thyroid lobe measures 4.1 x 1.5 x 1.4 c m. Thyroid isthmus measures 4 mm in thickness. There is a 1 cm anechoic cystic TI RADS 1 nodule in th e inferior right thyroid lobe with posterior acoustic enhancement, smooth margins and curvilinear int ernal septation but no other evidence solid soft tissue component. No other thyroid nodule identified . There is normal echotexture, echogenicity and vascular flow throughout the thyroid gland. IMPRESSION: 1. Likely benign 1 cm TI RADS 1 cystic nodules in the right thyroid lobe. Otherwise unremarkable thyr oid ultrasound. Reviewed, dictated and finalized at location A. IMPRESSION: 1. Likely benign 1 cm TI RADS 1 cystic nodules in the right thyroid lobe. Other roberto unremarkable thyroid ultrasound.
== END 2023-12-31 07:58 ==
LOC: MICIMG 07:58
PROVIDERS: PCP Emergency Medicine; Visit Provider Nurse Practitioner Obstetrics & Gynecology
DX: E04.9 Nontoxic goiter, unspecified (principal)
CPT/HCPCS: 76536

== ENCOUNTER 2024-05-17 09:35 | Outpatient (CLI) | payer BC, SELFPAY ==
[2024-05-17 10:30] LABS: Beta HCG Quantitative < 2.39 mIU/ML
== END 2024-05-17 09:36 | disposition home or self-care (01) ==
LOC: ANHLAB 09:36
PROVIDERS: PCP Internal Medicine; Visit Provider Nurse Practitioner Obstetrics & Gynecology
DX: R10.2 Pelvic and perineal pain (principal)
CPT/HCPCS: 36415; 84702

== ENCOUNTER 2024-05-20 11:25 | Outpatient (CLI) | payer BC, SELFPAY ==
--- NOTE | ~2024-05-20 | US_ITS ---
US pelvic complete w TV Ordering provider: Elizabeth Mcnamara APRN History: . R10.2 - Pelvic and perineal pain . Comparison: None. Technique: Transabdominal and endovaginal ultrasound of the pelvis (Doppler ultrasound interrogation techniques used as needed for this exam.) FINDINGS: CERVIX: Normal. UTERUS: Measures 8.8x 5x 6.1 cm in length which is within normal limits and is anteverted. No myomet rial masses. ENDOMETRIUM: Normal in thickness measuring 8 mm. (Note: the premenopausal endometrium may measure up to 16 mm when in the secretory phase.) No endometrial masses, cysts or fluid. CUL DE SAC: Minimal free fluid in the posterior CDS.. RIGHT OVARY: Normal in size measuring 3.4x 3.2x 2.2 cm. Normal echotexture. Doppler vascular flow pre sent. LEFT OVARY: Normal in size measuring 2.8x 2.8x 2 cm. Normal echotexture. Doppler vascular flow presen t. ADNEXA: Normal. No mass. IMPRESSION: Minimal fluid in the posterior cul-de-sac. Otherwise, normal pelvic ultrasound. Reviewed, dictated and finalized at location A. [facility] REPRESENTATIVE
== END 2024-05-20 11:26 | disposition home or self-care (01) ==
LOC: MICIMG 11:26
PROVIDERS: PCP Internal Medicine; Visit Provider Nurse Practitioner Obstetrics & Gynecology
DX: R10.2 Pelvic and perineal pain (principal)
CPT/HCPCS: 76830; 76856

== ENCOUNTER 2024-09-05 19:04 | Emergency (ER) | payer BC, SELFPAY ==
[2024-09-05 19:11] VITALS: BP 143/80; PULSE 87; RESP 18; TEMP 36.6; O2SAT 99
--- NOTE | 2024-09-05 19:22 | ED.URI ---
HPI - URI/Sore Throat General Chief Complaint: Upper Respiratory Infection Stated Complaint: throat sore,irritated Time Seen by Provider: 09/05/24 19:23 Source: patient, RN notes reviewed and old records reviewed Mode of arrival: ambulatory Limitations: no limitations History of Present Illness HPI Narrative: 29-year-old female presents to the [facility] with complaints of a sore throat since yesterday. Denies any other symptoms. Denies fevers, chest pain, cough, stuffy nose, runny nose No treatment prior to arrival Treatments prior to arrival: none Related Data Home Medications ?Medication ?Instructions ?Recorded ?Confirmed ?Last Taken ?Type ferrous sulfate 325 mg (65 mg 325 mg PO DAILY 11/24/23 05/17/24 Unknown History iron) tablet cholecalciferol (vitamin D3) 62.5 mcg PO 05/17/24 05/17/24 Unknown History mcg (2,500 unit) capsule Allergies Allergy/AdvReac Type Severity Reaction Status Date / Time No Known Allergies Allergy Verified 09/05/24 19:07 Review of Systems Review of Systems: All systems reviewed & are unremarkable except as noted in HPI and below Constitutional: Constitutional: Reports no additional constitutional complaints ENT: Reports as per HPI and Reports sore throat Cardiovascular: Cardiovascular: Reports no additional cardiovascular complaints, Denies chest pain and Denies dyspnea Respiratory: Respiratory: Reports no additional respiratory complaints, Denies chest congestion, Denies cough and Denies dyspnea Musculoskeletal: Musculoskeletal: Reports no additional musculoskeletal complaints Integumentary/Breasts: Skin/Breast: Reports system reviewed and no additional complaints, except as docu PMFSH Past Medical History Medical History Broken arm Right Obesity Surgical History Surgical History H/O dilation and curettage Previous section Family History Family History Mother Hypertension Mother Kidney failure Grandparent Carcinoma of colon Social History Social History Smoking status: Never smoker Second hand tobacco smoke exposure: No Alcohol intake: current Drinks per week: 2 Alcohol use details: occasional Substance use: former Substance use type: marijuana Other substance usage details: OCCASIONAL MARIJUANA USE IN THE PAST Lack of Transportation: No Lack of Food: Never True Current Housing: I Have Housing Concerned About Future Housing: No Difficulty Paying Gas/Electric Bills: No Difficulty Paying for Meds: No Currently Unemployed: No Education: Bachelor's Degree Difficulty w/ Childcare or Family Care: No Living arrangements: with family Occupation/Education: occupation Gender identity (if verbalized by the patient): Female Spiritual care concerns: No Comments At the time of my signature, I reviewed and agree with the nursing past medical, surgical, social, and family history. There is no relevant family history pertinent to the patient complaint. Exam Const: General: cooperative, healthy appearing, comfortable, no acute distress, well developed, alert and well nourished Nutritional Appearance: well nourished and obese Orientation/consciousness: patient oriented x3 Limitations: no limitations HENMT: Head: normal to inspection Ears: hearing grossly normal bilaterally, external ears normal, TM's normal bilaterally, EAC's normal, mastoids normal and no periauricular adenopathy Face/Nose/Sinus: Normal external nose present Mouth: Yes Normal oral and palatal mucosa present, Yes lip normal, Yes tongue normal and Yes moist mucous membranes Throat: posterior oropharynx normal, tonsils normal, uvula midline and no uvular edema Eyes: General: appearance normal, both eyes and all related structures Alignment and Position: alignment normal Neck: Neck: normal visual inspection, full ROM, no lymphadenopathy and no meningeal signs Chest: Chest palpation & inspection: normal inspection of the chest Resp: Effort & Inspection: normal respiratory effort and able to speak in complete sentences Auscultation: clear to auscultation bilaterally, no crackles, no rales, no rhonchi and no wheezes Cardio: Rate: regular rate Skin: General skin exam: normal color and no rashes or lesions noted Neuro: General: patient oriented x3, gait normal, moves all extremities and no meningeal signs Cognition (Neuro): normal cognition Speech: normal speech Gait exam (Neuro): Normal gait present Extrem: General: normal to inspection, full ROM, capillary refill normal and normal gait Psych: Appearance: grossly normal and well kempt Mental Status: mental status grossly normal Speech and movement: Normal speech and movement present and Clear speech present Affect: normal affect Attitude: cooperative Course Course Level of Care: Express Care Visit Vital Signs Vital signs: Vital Signs Temperature 97.8 F 09/05/24 19:11 Pulse Rate 87 09/05/24 19:11 Respiratory Rate 18 09/05/24 19:11 Blood Pressure 143/80 H 09/05/24 19:11 Pulse Oximetry 99 09/05/24 19:11 Oxygen Delivery Room Air 09/05/24 19:11 Temperature 97.8 F 09/05/24 19:11 Pulse Rate 87 09/05/24 19:11 Respiratory Rate 18 09/05/24 19:11 Blood Pressure 143/80 H 09/05/24 19:11 Pulse Oximetry 99 09/05/24 19:11 Oxygen Delivery Room Air 09/05/24 19:11 Reviewed MDM - URI/Sore Throat MDM Narrative Medical decision making narrative: Patient sitting in exam room. Nontoxic, vitals stable. Patient presents for a sore throat Strep test negative, will culture Patient appropriate for outpatient treatment with close follow-up Discharge instructions reviewed with patient, as well as provided in writing per nursing staff. The instructions also include specific and strict return/GO TO THE ER as well as f/u information. All questions have been answered, and the patient deny any further questions with discharge and discharge plan. Some parts of this dictation were generated by voice recognition software and may contain typographical and/or grammatical inaccuracies. Differential Diagnosis Differential diagnosis: Likely upper respiratory infection, otitis media, sinusitis and pharyngitis Lab Data Labs: Lab Results 09/05/24 Range/Units 19:13 POC Grp A Strep Screen Negative (Negative) Reviewed Critical Care Time Critical Care Time Critical Care Time: No Discharge Plan Discharge Clinical Impression: Pharyngitis Patient Disposition: Home Condition: Stable Instructions: Antibiotic Form, Pharyngitis (ED) Additional Instructions: Your rapid strep swab was negative today at [facility]. A throat culture will be sent to the laboratory for further testing. If the test is positive, you will receive a phone call within 48 hours and an appropriate antibiotic will be initiated at that time. Your symptoms are likely due to a viral illness, which is not treated with antibiotics. Typically viral infections last 7-10 days, can linger for couple of weeks. It is very important to treat your symptoms. Drink plenty of water, Gatorade, Pedialyte, ice pops or Jell-O. -Alternate Tylenol and Motrin per package directions for fever or pain. You can alternate every 4 hours -Antihistamine medication such as Zyrtec/Claritin/Josie during the day can help improve symptoms. -doing daily nasal irrigations can help relieve pressure your sinuses. Things like a Neti pot -Use Flonase twice a day for 5 days then daily to help reduce the inflammation and dry up your sinuses. -You can also use Mucinex. Be sure to drink plenty of water with this medication at least 8 ounces with every dose and it is important to drink 8 to 10 glasses of water per day. Water is a natural decongestant -Eat and drink things that are easy to swallow, like tea or soup, or popsicles. -Oral rinses such as: Salt water gargles and/or may use topical anesthetic (eg. Chloraseptic spray) or lozenges to relieve dryness or throat pain). -Frequent hand washing or hand therapy aide is one of the best ways to prevent spread of infection. -Using a vaporizer or humidifier at night will also help thin secretions and help with coughing up phlegm. -Follow up with primary care provider in 7-10 days if condition is not improving - For new or worsening symptoms go directly to the nearest ER Patient Language: Mauritanian Prescriptions: No Action cholecalciferol (vitamin D3) 62.5 mcg (2,500 unit) capsule PO ferrous sulfate 325 mg (65 mg iron) tablet 325 mg PO DAILY Follow-up/Referrals: Missy,MD Sydnee [Primary Care Provider] - 1 Week ([facility] follow-up) Stand Alone Forms: Work/School Release IP Time of Disposition: 19:30
[2024-09-05 19:26] LABS: EDSTREPNEGPOS1 Negative (Negative)
== END 2024-09-05 19:35 | disposition home or self-care (01) ==
PROVIDERS: Emergency Provider Nurse Practitioner; PCP Internal Medicine
DX: J02.9 Acute pharyngitis, unspecified (principal)
CPT/HCPCS: 87081; 87880; 99213; G0463

== ENCOUNTER 2024-09-28 19:39 | Emergency (ER) | payer BC, SELFPAY ==
--- NOTE | ~2024-09-28 | XR_ITS ---
HISTORY: general LT ankle pain, Rolled inversely 3 days ago COMPARISON: None TECHNIQUE: 3 views of the left ankle were performed FINDINGS: No acute or subacute fracture or dislocation. Moderate medial and lateral soft tissue swelling. The ankle mortise is preserved. Bone mineralization is age-appropriate. IMPRESSION: Soft tissue swelling, without acute or subacute fracture. Reviewed, dictated and finalized at location A.
--- NOTE | 2024-09-28 19:43 | ED.FALL ---
HPI - Fall General Chief Complaint: Extremity Injury, Lower Stated Complaint: Fall . Lt Leg Pain Time Seen by Provider: 09/28/24 19:45 Source: patient, RN notes reviewed and old records reviewed Mode of arrival: ambulatory Limitations: no limitations History of Present Illness HPI Narrative: 29-year-old female presents to the [facility] with complaints of left lateral leg pain, worse on the ankle and radiates upwards. No treatment prior to arrival. Patient reports that she was running for the door when it was raining on Wednesday, twisted her ankle. Reports left leg pain. Walking with a normal gait Onset (ago): day(s) (3) Related Data Home Medications ?Medication ?Instructions ?Recorded ?Confirmed ?Last Taken ?Type ferrous sulfate 325 mg (65 mg 325 mg PO DAILY 11/24/23 05/17/24 Unknown History iron) tablet cholecalciferol (vitamin D3) 62.5 mcg PO 05/17/24 05/17/24 Unknown History mcg (2,500 unit) capsule Allergies Allergy/AdvReac Type Severity Reaction Status Date / Time No Known Allergies Allergy Verified 09/28/24 19:52 Review of Systems Review of Systems: All systems reviewed & are unremarkable except as noted in HPI and below Constitutional: Constitutional: Reports no additional constitutional complaints ENT: Reports system reviewed and no additional complaints, except as documented Cardiovascular: Cardiovascular: Reports no additional cardiovascular complaints, Denies chest pain and Denies dyspnea Respiratory: Respiratory: Reports no additional respiratory complaints, Denies chest congestion, Denies cough and Denies dyspnea Musculoskeletal: Musculoskeletal: Reports as per HPI Integumentary/Breasts: Skin/Breast: Reports system reviewed and no additional complaints, except as docu PMFSH Past Medical History Medical History Broken arm Right Obesity Surgical History Surgical History H/O dilation and curettage Previous section Family History Family History Mother Hypertension Mother Kidney failure Grandparent Carcinoma of colon Social History Social History Smoking status: Never smoker Second hand tobacco smoke exposure: No Alcohol intake: current Drinks per week: 2 Alcohol use details: occasional Substance use: former Substance use type: marijuana Other substance usage details: OCCASIONAL MARIJUANA USE IN THE PAST Lack of Transportation: No Lack of Food: Never True Current Housing: I Have Housing Concerned About Future Housing: No Difficulty Paying Gas/Electric Bills: No Difficulty Paying for Meds: No Currently Unemployed: No Education: Bachelor's Degree Difficulty w/ Childcare or Family Care: No Living arrangements: with family Occupation/Education: occupation Gender identity (if verbalized by the patient): Female Spiritual care concerns: No Comments At the time of my signature, I reviewed and agree with the nursing past medical, surgical, social, and family history. There is no relevant family history pertinent to the patient complaint. Exam Const: General: cooperative, healthy appearing, comfortable, no acute distress, well developed, alert and well nourished Nutritional Appearance: well nourished and obese Orientation/consciousness: patient oriented x3 Limitations: no limitations HENMT: Head: normal to inspection Eyes: General: appearance normal, both eyes and all related structures Alignment and Position: alignment normal Neck: Neck: normal visual inspection, full ROM, no lymphadenopathy and no meningeal signs Chest: Chest palpation & inspection: normal inspection of the chest Resp: Effort & Inspection: normal respiratory effort and able to speak in complete sentences Cardio: Rate: regular rate Skin: General skin exam: normal color and no rashes or lesions noted Neuro: General: patient oriented x3, gait normal, moves all extremities and no meningeal signs Cognition (Neuro): normal cognition Speech: normal speech Gait exam (Neuro): Normal gait present Extrem: General: normal to inspection, full ROM, capillary refill normal and normal gait Left lower extremity: normal capillary refill, ankle Details: tenderness Location: of the lateral malleolus, no edema and abnormal ROM (Has full range of motion) Details: pain with active ROM; no swelling and foot Details: normal capillary refill, toes with normal ROM and vascular exam Details: dorsalis pedis pulse present and normal capillary refill; no tenderness Psych: Appearance: grossly normal and well kempt Mental Status: mental status grossly normal Speech and movement: Normal speech and movement present and Clear speech present Affect: normal affect Attitude: cooperative Course Course Level of Care: Express Care Visit Vital Signs Vital signs: Vital Signs Temperature 98.3 F 09/28/24 19:45 Pulse Rate 71 05/22/25 19:45 Respiratory Rate 14 09/28/24 19:45 Blood Pressure 142/83 H 09/28/24 19:45 Pulse Oximetry 100 09/28/24 19:45 Oxygen Delivery Room Air 09/28/24 19:45 Temperature 98.3 F 09/28/24 19:45 Pulse Rate 71 09/28/24 19:45 Respiratory Rate 14 09/28/24 19:45 Blood Pressure 142/83 H 09/28/24 19:45 Pulse Oximetry 100 09/28/24 19:45 Oxygen Delivery Room Air 09/28/24 19:45 Reviewed MDM - Fall MDM Narrative Medical decision making narrative: Patient sitting in exam room. Patient is nontoxic, vitals stable care. Patient reports 3 day history of rolling ankle, pain to the lateral malleolus. X-ray negative Patient appropriate for outpatient treatment with close follow-up, given Maksim wrap in clinic. Reports that she has an appointment with her primary tomorrow. Discharge instructions reviewed with patient, as well as provided in writing per nursing staff. The instructions also include specific and strict return/GO TO THE ER as well as f/u information. All questions have been answered, and the patient deny any further questions with discharge and discharge plan. Some parts of this dictation were generated by voice recognition software and may contain typographical and/or grammatical inaccuracies. Differential Diagnosis Differential diagnosis: Likely other (Ankle fracture, ankle sprain) Imaging Data Radiologist's impression: HISTORY: general LT ankle pain, Rolled inversely 3 days ago COMPARISON: None TECHNIQUE: 3 views of the left ankle were performed FINDINGS: No acute or subacute fracture or dislocation. Moderate medial and lateral soft tissue swelling. The ankle mortise is preserved. Bone mineralization is age-appropriate. IMPRESSION: Soft tissue swelling, without acute or subacute fracture. Critical Care Time Critical Care Time Critical Care Time: No Discharge Plan Discharge Clinical Impression: High ankle sprain, Acute pain of left lower extremity, High ankle sprain of left lower extremity Patient Disposition: Home Condition: Stable Instructions: Ankle Sprain (ED), Leg Pain (ED) Additional Instructions: Your Xray did not show a fracture. Wear good supportive shoes at all times. Ice should be applied to help reduce swelling. It can be used for 20 to 30 minutes, every 2-3 hours while awake. Do not apply ice directly to your skin. ankle braces or maksim-wraps will help support your injured ankle. You can alternate ibuprofen 600mg and Tylenol 650mg every 4 hours as needed for pain Please schedule a follow-up visit with your personal physician for further evaluation and treatment within 2 weeks especially if symptoms persist. For new or worsening symptoms go directly to the emergency room Patient Language: French Prescriptions: No Action cholecalciferol (vitamin D3) 62.5 mcg (2,500 unit) capsule PO ferrous sulfate 325 mg (65 mg iron) tablet 325 mg PO DAILY Follow-up/Referrals: Missy,MD Sydnee [Primary Care Provider] - 1 Week ([facility] follow-up) Stand Alone Forms: Work/School Release IP Time of Disposition: 21:01
[2024-09-28 19:45] VITALS: BP 142/83; PULSE 71; RESP 14; TEMP 36.8; O2SAT 100
== END 2024-09-28 21:08 | disposition home or self-care (01) ==
PROVIDERS: Emergency Provider Nurse Practitioner; PCP Internal Medicine
DX: S93.402A Sprain of unspecified ligament of left ankle, initial encounter (principal); X50.9XXA Other and unspecified overexertion or strenuous movements or postures, initial encounter; Y93.02 Activity, running; M79.662 Pain in left lower leg; E66.9 Obesity, unspecified; Z68.41 Body mass index [BMI] 40.0-44.9, adult
CPT/HCPCS: 73610; 99213; G0463

== ENCOUNTER 2025-02-18 13:59 | Emergency (ER) | payer BC, SELFPAY ==
[2025-02-18 14:09] VITALS: BP 136/79; PULSE 79; RESP 18; TEMP 37.2; O2SAT 99
--- NOTE | 2025-02-18 14:39 | ED.HA ---
HPI - Headache General Chief Complaint: Headache Stated Complaint: headache Time Seen by Provider: 02/18/25 14:01 Source: patient Mode of arrival: ambulatory Limitations: no limitations History of Present Illness HPI Narrative: Patient is a 29-year-old female who presents with 3-4 days of frontal headache. Reports it as dull throbbing and aching. Patient was seen by PCP at the start of symptoms and was prescribed medication for hypertension and anxiety, patient has not picked medication up. Patient has not taken anything for symptoms. Denies any vision changes, numbness, tingling, weakness or photophobia. Related Data Home Medications ?Medication ?Instructions ?Recorded ?Confirmed ?Last Taken ?Type ferrous sulfate 325 mg (65 mg 325 mg PO DAILY 11/24/23 12/29/24 Unknown History iron) tablet cholecalciferol (vitamin D3) 62.5 mcg PO 05/17/24 12/29/24 Unknown History mcg (2,500 unit) capsule amlodipine 5 mg tablet mg 02/18/25 Unknown History hydroxyzine HCl 50 mg tablet mg 02/18/25 Unknown History Allergies Allergy/AdvReac Type Severity Reaction Status Date / Time No Known Allergies Allergy Verified 02/18/25 14:02 Review of Systems Review of Systems: All systems reviewed & are unremarkable except as noted in HPI and below Constitutional: Constitutional: Denies body ache(s), Denies chills, Denies fatigue, Denies fever(s), Reports headache(s), Denies malaise and Denies weakness Eyes: Eyes: Denies blurry vision, Denies irritation and Denies loss of vision ENT: Denies otalgia, Reports headache(s), Denies nasal discharge, Denies sinus pain and Denies sore throat Cardiovascular: Cardiovascular: Denies chest pain, Denies irregular heart rhythm and Denies dyspnea Respiratory: Respiratory: Denies dyspnea Gastrointestinal: Gastrointestinal: Denies abdominal pain, Denies melena, Denies hematochezia, Denies diarrhea, Denies nausea and Denies vomiting Musculoskeletal: Musculoskeletal: Denies back pain, Denies myalgias and Denies arthralgias Integumentary/Breasts: Skin/Breast: Denies pruritus and Denies rash Neurologic: Reports headache(s), Denies loss of vision and Denies weakness Psychiatric: Psychiatric: Reports no additional psychiatric complaints Endocrine: Endocrine: Denies fatigue PMFSH Past Medical History Medical History Broken arm Right Obesity Surgical History Surgical History H/O dilation and curettage Previous section Family History Family History Mother Hypertension Mother Kidney failure Grandparent Carcinoma of colon Social History Social History Smoking status: Never smoker Second hand tobacco smoke exposure: No Alcohol intake: current Drinks per week: 2 Alcohol use details: occasional Substance use: former Substance use type: marijuana Other substance usage details: OCCASIONAL MARIJUANA USE IN THE PAST Lack of Transportation: No Lack of Food: Never True Current Housing: I Have Housing Concerned About Future Housing: No Difficulty Paying Gas/Electric Bills: No Difficulty Paying for Meds: No Currently Unemployed: No Education: Bachelor's Degree Difficulty w/ Childcare or Family Care: No Living arrangements: with family Occupation/Education: occupation Gender identity (if verbalized by the patient): Female Spiritual care concerns: No Comments At time of signature, agree with nursing past medical, surgical, social and family history. There is no relevant family history pertinent to the presenting complaint. Exam Const: General: cooperative, healthy appearing, comfortable, no acute distress and well nourished Nutritional Appearance: well nourished Orientation/consciousness: patient oriented x3 Limitations: no limitations HENMT: Head: normal to inspection, normocephalic and atraumatic Ears: hearing grossly normal bilaterally and external ears normal Face/Nose/Sinus: Normal external nose present, normal facial exam and face symmetric Face and sinus: normal facial exam and face symmetric Mouth: Yes lip normal Eyes: General: appearance normal, both eyes and all related structures Alignment and Position: alignment normal and position normal Periorbital: periorbital findings normal Eyelids: eyelids normal Pupils: Equal, round and reactive pupils present EOM: EOMs intact bilaterally Neck: Neck: normal visual inspection, full ROM and supple Chest: Chest palpation & inspection: normal inspection of the chest Resp: Effort & Inspection: normal respiratory effort and able to speak in complete sentences Auscultation: clear to auscultation bilaterally Cardio: Rate: regular rate Rhythm: regular rhythm Heart sounds: S1 normal heart sound present and S2 normal heart sound present GI: Inspection: normal to inspection Skin: General skin exam: normal color and no rashes or lesions noted Neuro: General: patient oriented x3 and moves all extremities Cranial nerves: Yes Equal, round and reactive pupils present Cognition (Neuro): normal cognition Speech: normal speech Gait exam (Neuro): Normal gait present Motor exam (neuro): 5/5 motor strength present throughout, Normal motor muscle tone present throughout and Motor abnormalities not present Sensory Exam: normal sensation Extrem: General: normal to inspection, full ROM and no edema Psych: Appearance: grossly normal and well kempt Mental Status: mental status grossly normal Speech and movement: Normal speech and movement present Affect: normal affect Attitude: cooperative Thought process: Normal thought process present Course Course Emergency Course: Patient is aware of diagnosis, understands and agrees to treatment plan. Anticipatory guidance given. Patient agrees to follow-up as directed and is aware of reasons to seek care at the emergency department. Portions of this record may have been created with voice recognition software Level of Care: Express Care Visit Vital Signs Vital signs: Vital Signs Temperature 37.2 C 02/18/25 14:09 Pulse Rate 79 02/18/25 14:09 Respiratory Rate 18 02/18/25 14:09 Blood Pressure 136/79 02/18/25 14:09 Pulse Oximetry 99 02/18/25 14:09 Oxygen Delivery Room Air 02/18/25 14:09 Temperature 37.2 C 02/18/25 14:09 Pulse Rate 79 02/18/25 14:09 Respiratory Rate 18 02/18/25 14:09 Blood Pressure 136/79 02/18/25 14:09 Pulse Oximetry 99 02/18/25 14:09 Oxygen Delivery Room Air 02/18/25 14:09 Reviewed MDM - Headache MDM Narrative Medical decision making narrative: Patient is neuro intact and shows no signs of intracranial abnormalities Pt well hydrated appearing, in no respiratory distress, hemodynamically stable. Recommend supportive care. The patient is stable at time of discharge the clinical impression was discussed and the patient was given the opportunity to ask questions, which were addressed as completely as possible given the information available at present. Anticipatory guidance and return to care precautions were discussed and the importance of primary care follow-up was stressed and encouraged. The patient voiced understanding of the plan, indications to return, and the need for follow-up. Exam findings show no acute concerns or changes Patient is appropriate for outpatient treatment and follow-up. Differential Diagnosis Differential diagnosis: Likely migraine, tension headache and headache Medical Records Attestation: I reviewed the patient's medical records. Discharge Plan Discharge Clinical Impression: Headache Qualifiers: Headache type: unspecified Headache chronicity pattern: acute headache Patient Disposition: Home Condition: Stable Instructions: Acute Headache (ED) Additional Instructions: Take Zofran as needed for nausea For pain, you may take: Tylenol 650-1000mg by mouth every 4-6 hours. Do not exceed 4000mg in 24 hours. Advil (Ibuprofen) 600 mg by mouth every 6 hours. Do not exceed 2400mg in 24 hours. 8 AM: Tylenol 11 AM: Ibuprofen 2 PM: Tylenol 5 PM: Ibuprofen 8 PM: Tylenol 11 PM: Ibuprofen 2 AM: Tylenol 5 AM: Ibuprofen Follow-up with PCP as needed or if you have worsening headache, vision changes, dizziness my persistent vomiting go to the emergency department. Patient Language: [place] Prescriptions: New ibuprofen 600 mg tablet 600 mg PO TID PRN (Reason: pain) Qty: 30 0RF ondansetron 4 mg tablet,disintegrating 4 mg PO Q6-8H PRN (Reason: nausea and vomiting) Qty: 7 0RF No Action hydroxyzine HCl 50 mg tablet amlodipine 5 mg tablet cholecalciferol (vitamin D3) 62.5 mcg (2,500 unit) capsule PO ferrous sulfate 325 mg (65 mg iron) tablet 325 mg PO DAILY Follow-up/Referrals: Missy,MD Sydnee [Primary Care Provider, Unknown] - 3 Days Time of Disposition: 14:56
== END 2025-02-18 15:00 | disposition home or self-care (01) ==
PROVIDERS: Emergency Provider Nurse Practitioner Family; PCP Internal Medicine
DX: R51.9 Headache, unspecified (principal); E66.9 Obesity, unspecified; Z68.42 Body mass index [BMI] 45.0-49.9, adult
CPT/HCPCS: 99213; G0463